=== PATIENT | male | born 1985 | race Two or more races ===

== ENCOUNTER 2019-02-03 09:21 | Inpatient (IN) | payer OTHER ==
[~2019-02-03] VITALS: Ht 160 cm; Wt 65.8 kg
[2019-02-03 09:28] VITALS: BP 133/82
--- NOTE | 2019-02-03 09:30 | NUR ---
ED Nurse Note: PT ARRIVED WITH RA 68 D/T OD ON COCAINE AT 0840 TODAY. PT WAS FOUND IN HIS CAR UNRESPONSIVE BY [facility]. PT WAS GIVEN 2 MG OF NARCAN AND REGAINED CONSCIOUSNESS. IV SITE ESTABLISHED; PATENT AND INTACT. PT IS AOX4, BLOOD SPECMINE COLLECTED AND SENT TO LAB
--- NOTE | 2019-02-03 09:32 | Emergency Room Report ---
History of Present Illness General Chief Complaint: Overdose Source: Patient Present Illness HPI Patient is a 33-year-old male brought in by EMS after altered mental status. Patient was found unresponsive in his car. He states he at that he did a line of Coke. He was found unresponsive by EMS and was given Narcan. He was noted to have rapid improvement in his mental status. He vomited 1 time after Narcan. He states he has used opiates in the past and states this did not feel like heroin. Patient also takes Abilify. He states he vomited one time after medications. Allergies: Coded Allergies: No Known Allergies (Unverified , 02/03/19) Patient History Past Medical History: see triage record Reviewed Nursing Documentation: PMH: Agreed; PSxH: Agreed Nursing Documentation-PMH Past Medical History: No Stated History Review of Systems All Other Systems: negative except mentioned in HPI Physical Exam Vital Signs Date Time Temp Pulse Resp B/P (MAP) Pulse Ox O2 Delivery O2 Flow Rate FiO2 02/03/19 09:25 110 27 90 Room Air 02/03/19 09:28 133/82 02/03/19 09:28 2.0 Sp02 EP Interpretation: reviewed, normal General Appearance: normal inspection, alert, Chronically Ill Head: atraumatic ENT: normal ENT inspection, hearing grossly normal, normal voice Neck: normal inspection, full range of motion, supple, no bony tend Respiratory: normal inspection, lungs clear, normal breath sounds, no retraction, decreased breath sounds Cardiovascular #1: no edema, tachycardia Gastrointestinal: normal inspection, normal bowel sounds, non tender, soft, no guarding, no hernia Genitourinary: no CVA tenderness Musculoskeletal: normal inspection, back normal, normal range of motion Neurologic: alert, motor strength/tone normal, 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 Medical Decision Making Diagnostic Impression: Primary Impression: Drug overdose Additional Impressions: Hypoxia Hypercapnic acidosis ER Course Patient presented for altered mental status. Differential diagnosis include was not limited to opiate overdose, polysubstance abuse, myocardial infarction, pulmonary edema among others. Because of complexity of patient's case laboratory tests and imaging studies were ordered.Patient was noted to have initial altered mental status and was noted to have some improvement after medications by EMS. He was noted to subsequently become more somnolent. He was given second dose of Narcan.Patient was noted to be hypercapnic and was started on BiPAP. He was given IV Protonix due to some episode of emesis with trace amount of some blood.Chest x-ray 1 view interpreted by me showed normal cardiac size without evident infiltrate. Patient was noted to be persistently hypoventilatory and was given breathing treatment.Laboratory studies showed some hypercapnia with respiratory acidosis. Lactic acid was elevated. EKG interpreted by me showed normal sinus rhythm with a rate of [address] or T wave changes.Urine drug screen was positive for amphetamine and marijuana. Due to patient's persistent hypoxia he will be admitted to the hospital for further evaluation and treatmentPatient was discussed with Dr. Ba for Dr. Kathleen for inpatient management. Labs Test 02/03/19 09:33 02/03/19 10:40 02/03/19 12:05 White Blood Count 14.3 K/UL (4.8-10.8) Red Blood Count 5.52 M/UL (4.70-6.10) Hemoglobin 17.4 G/DL (14.2-18.0) Hematocrit 52.3 % (42.0-52.0) Mean Corpuscular Volume 95 FL (80-99) Mean Corpuscular Hemoglobin 31.6 PG (27.0-31.0) Mean Corpuscular Hemoglobin Concent 33.3 G/DL (32.0-36.0) Red Cell Distribution Width 11.1 % (11.6-14.8) Platelet Count 311 K/UL (150-450) Mean Platelet Volume 7.0 FL (6.5-10.1) Neutrophils (%) (Auto) 43.9 % (45.0-75.0) Lymphocytes (%) (Auto) 48.3 % (20.0-45.0) Monocytes (%) (Auto) 5.2 % (1.0-10.0) Eosinophils (%) (Auto) 1.1 % (0.0-3.0) Basophils (%) (Auto) 1.5 % (0.0-2.0) Urine Color Yellow Urine Appearance Clear Urine pH 6 (4.5-8.0) Urine Specific [place] 1.025 (1.005-1.035) Urine Protein 2+ (NEGATIVE) Urine Glucose (UA) Negative (NEGATIVE) Urine Ketones 1+ (NEGATIVE) Urine Blood Negative (NEGATIVE) Urine Nitrite Negative (NEGATIVE) Urine Bilirubin Negative (NEGATIVE) Urine Urobilinogen Normal MG/DL (0.0-1.0) Urine Leukocyte Esterase 1+ (NEGATIVE) Urine RBC 0-2 /HPF (0 - 0) Urine WBC 0-2 /HPF (0 - 0) Urine Squamous Epithelial Cells Occasional /LPF Urine Calcium Oxalate Crystals Few /LPF (NONE) Urine Bacteria Occasional /HPF (NONE) Urine Fine Granular Casts 0-2 /LPF (NONE) Sodium Level 145 MMOL/L (136-145) Potassium Level 3.4 MMOL/L (3.5-5.1) Chloride Level 109 MMOL/L (98-107) Carbon Dioxide Level 25 MMOL/L (21-32) Anion Gap 11 mmol/L (5-15) Blood Urea Nitrogen 9 mg/dL (7-18) Creatinine 1.1 MG/DL (0.55-1.30) Estimat Glomerular Filtration Rate > 60 mL/min (>60) Glucose Level 185 MG/DL (74-106) Calcium Level 8.1 MG/DL (8.5-10.1) Phosphorus Level 5.3 MG/DL (2.5-4.9) Magnesium Level 2.1 MG/DL (1.8-2.4) Total Bilirubin 0.4 MG/DL (0.2-1.0) Aspartate Amino Transf (AST/SGOT) 18 U/L (15-37) Alanine Aminotransferase (ALT/SGPT) 24 U/L (12-78) Alkaline Phosphatase 60 U/L (46-116) Total Creatine Kinase 215 U/L (26-308) Creatine Kinase MB 1.9 NG/ML (0.0-3.6) Creatine Kinase MB Relative Index 0.8 Troponin I 0.000 ng/mL (0.000-0.056) Pro-B-Type Natriuretic Peptide 45 pg/mL (0-125) Total Protein 7.3 G/DL (6.4-8.2) Albumin 3.8 G/DL (3.4-5.0) Globulin 3.5 g/dL Albumin/Globulin Ratio 1.1 (1.0-2.7) Lipase 253 U/L (73-393) Salicylates Level 7.0 ug/mL (2.8-20) Urine Opiates Screen Negative (NEGATIVE) Acetaminophen Level < 2 MCG/ML (10-30) Urine Barbiturates Screen Negative (NEGATIVE) Phencyclidine (PCP) Screen Negative (NEGATIVE) Urine Amphetamines Screen Positive (NEGATIVE) Urine Benzodiazepines Screen Negative (NEGATIVE) Urine Cocaine Screen Negative (NEGATIVE) Urine Marijuana (THC) Screen Positive (NEGATIVE) Serum Alcohol < 3 mg/dL Lactic Acid Level 2.20 mmol/L (0.66-2.22) Arterial Blood pH 7.195 (7.350-7.450) Arterial Blood Partial Pressure CO2 67.0 mmHg (35.0-45.0) Arterial Blood Partial Pressure O2 58.2 mmHg (75.0-100.0) Arterial Blood HCO3 25.3 mmol/L (22.0-26.0) Arterial Blood Oxygen Saturation 86.8 % (95-100) Arterial Blood Base Excess -4.4 (-2-2) Riaz Test Positive EKG Diagnostic Results Rate: normal - 86 Rhythm: NSR ST Segments: no acute changes Last Vital Signs Date Time Temp Pulse Resp B/P (MAP) Pulse Ox O2 Delivery O2 Flow Rate FiO2 02/03/19 09:28 110 27 Room Air 2.0 02/03/19 09:28 133/82 90 Status: unchanged Disposition: ADMITTED INPATIENT Condition: Stable Dliip Hannon MD Feb 03, 2019 09:32
--- NOTE | 2019-02-03 09:46 | NUR ---
ED Nurse Note: urine collected; specimen sent to lab
[2019-02-03] MEDS ORDERED: Naloxone 1mg/ml 2ml ONE (09:50)
[2019-02-03 09:53] LABS: BASOPHILS % (AUTO) 1.5 % (0.0-2.0); EOSINOPHILS % (AUTO) 1.1 % (0.0-3.0); HEMATOCRIT 52.3 % (42.0-52.0); HEMOGLOBIN 17.4 G/DL (14.2-18.0); LYMPHOCYTES % (AUTO) 48.3 % (20.0-45.0); MEAN CORPUSCULAR VOLUME 95 FL (80-99); MONOCYTES % (AUTO) 5.2 % (1.0-10.0); NEUTROPHILS % (AUTO) 43.9 % (45.0-75.0); PLATELET COUNT 311 K/UL (150-450); RED BLOOD COUNT 5.52 M/UL (4.70-6.10); RED CELL DISTRIBUTION WIDTH 11.1 % (11.6-14.8); WHITE BLOOD COUNT 14.3 K/UL (4.8-10.8)
[2019-02-03 09:55] LABS: APPEARANCE,URINE CLEAR; BILIRUBIN, URINE NEGATIVE (NEGATIVE); GLUCOSE, URINE (UA) NEGATIVE (NEGATIVE); KETONES,URINE 1+ (NEGATIVE); LEUKOCYTE ESTERASE ,URINE 1+ (NEGATIVE); NITRITE,URINE NEGATIVE (NEGATIVE); PH,URINE 6 (4.5-8.0); PROTEIN,URINE 2+ (NEGATIVE); UROBILINOGEN,URINE NORMAL MG/DL (0.0-1.0)
[2019-02-03] MEDS ORDERED: Naloxone 1mg/ml 2ml IVP ONE (10:00)
[2019-02-03 10:01] LABS: COLOR,URINE YELLOW
--- NOTE | 2019-02-03 10:02 | NUR ---
ED Nurse Note: Xray at bedside
[2019-02-03 10:07] LABS: ANION GAP 11 mmol/L (5-15); BLOOD UREA NITROGEN 9 mg/dL (7-18); CALCIUM 8.1 MG/DL (8.5-10.1); CARBON DIOXIDE 25 MMOL/L (21-32); CHLORIDE 109 MMOL/L (98-107); CREATININE 1.1 MG/DL (0.55-1.30); POTASSIUM 3.4 MMOL/L (3.5-5.1); SODIUM 145 MMOL/L (136-145)
--- NOTE | 2019-02-03 10:24 | NUR ---
ED Nurse Note: Informed ERMD of lactic acid results.
[2019-02-03 10:25] LABS: ALANINE AMINOTRANSFERASE 24 U/L (12-78); ALBUMIN 3.8 G/DL (3.4-5.0); ALBUMIN/GLOBULIN RATIO 1.1 (1.0-2.7); ALKALINE PHOSPHATASE 60 U/L (46-116); ASPARTATE AMINO TRANSFERASE 18 U/L (15-37); BILIRUBIN,TOTAL 0.4 MG/DL (0.2-1.0); CKMB 1.9 NG/ML (0.0-3.6); CREATINE KINASE 215 U/L (26-308); PHOSPHORUS 5.3 MG/DL (2.5-4.9)
--- NOTE | 2019-02-03 10:42 | NUR ---
ED Nurse Note: Lactic acid redrawn, sent to lab.
[2019-02-03] MEDS ORDERED: Albuterol/Ipratropium 3ml neb HHN ONE (11:30)
[2019-02-03] MEDS ORDERED: Pantoprazole Inj IVP ONE (11:45)
[2019-02-03] MEDS ORDERED: Zosyn 3.375gm inj ONE (11:56)
[2019-02-03] MEDS ORDERED: Piperacillin/Tazobactam 3.375 GM in NS 110 ML IVPB ONE (12:00)
--- NOTE | 2019-02-03 12:08 | NUR ---
ED Nurse Note: RT at bedside. Placed pt on high flow.
--- NOTE | 2019-02-03 13:07 | NUR ---
ED Nurse Note: retrieved pt/ptt specimen and sent to lab
--- NOTE | 2019-02-03 13:42 | History and Physical ---
History of Present Illness General Date patient seen: Feb 03, 2019 Reason for Hospitalization: Overdose Present Illness HPI Patient is a 33-year-old male brought in by EMS after altered mental status. Patient was found unresponsive in his car. He stated that he was doing a line of cocaine. He was found unresponsive by EMS and was given Narcan. He was noted to have rapid improvement in his mental status. He vomited 1 time after Narcan. He stated he has used opiates in the past and stated this did not feel like heroin. Patient also takes Abilify. Information gathered via medical chart mostly. At the time of my exam patient is awake, on bipap, history is limited. ER Course Patient presented for altered mental status. Differential diagnosis include was not limited to opiate overdose, polysubstance abuse, myocardial infarction, pulmonary edema among others. Because of complexity of patient's case laboratory tests and imaging studies were ordered.Patient was noted to have initial altered mental status and was noted to have some improvement after medications by EMS. He was noted to subsequently become more somnolent. He was given second dose of Narcan.Patient was noted to be hypercapnic and was started on BiPAP. He was given IV Protonix due to some episode of emesis with trace amount of some blood.Chest x-ray 1 view interpreted by me showed normal cardiac size without evident infiltrate. Patient was noted to be persistently hypoventilatory and was given breathing treatment.Laboratory studies showed some hypercapnia with respiratory acidosis. Lactic acid was elevated. EKG interpreted by me showed normal sinus rhythm with a rate of [address] or T wave changes.Urine drug screen was positive for amphetamine and marijuana. In the ER after treatment remained hypoxic. PMH: Depression PSH: none Social: illicit drugs including, cocaine, meth, heroin. Washes dishes at a restaurant Family history: unknown Allergies: Coded Allergies: No Known Allergies (Unverified , 02/03/19) Patient History Healthcare decision maker Resuscitation status Advanced Directive on File Review of Systems ROS Narrative unable to obtain Physical Exam Physical Exam Narrative General Appearance: Alert, on bipap Head: atraumatic ENT: normal ENT inspection, hearing grossly normal, Neck: normal inspection, full range of motion, supple Respiratory: lungs clear, normal breath sounds, no respiratory distress, no retraction, no wheezing Cardiovascular: tachycardia, no m/r/g, no edema Gastrointestinal: normal inspection, normal bowel sounds, non tender, soft, no guarding, no hernia Musculoskeletal: normal inspection, normal range of motion Neurologic: alert, grossly normal Psychiatric: normal mood/affect normal Last 24 Hour Vital Signs Date Time Temp Pulse Resp B/P (MAP) Pulse Ox O2 Delivery O2 Flow Rate FiO2 02/03/19 12:55 91 14 100 Facial 100 02/03/19 11:35 85 16 Nasal Cannula 3.0 32 02/03/19 11:33 74 18 100 Nasal Cannula 4.0 32 82 16 98 02/03/19 09:28 110 27 Room Air 2.0 02/03/19 09:28 108 27 133/82 90 Room Air 02/03/19 09:25 110 27 90 Room Air Laboratory Tests Test 02/03/19 09:33 02/03/19 10:40 02/03/19 12:05 02/03/19 13:05 White Blood Count 14.3 K/UL (4.8-10.8) H Red Blood Count 5.52 M/UL (4.70-6.10) Hemoglobin 17.4 G/DL (14.2-18.0) Hematocrit 52.3 % (42.0-52.0) H Mean Corpuscular Volume 95 FL (80-99) Mean Corpuscular Hemoglobin 31.6 PG (27.0-31.0) H Mean Corpuscular Hemoglobin Concent 33.3 G/DL (32.0-36.0) Red Cell Distribution Width 11.1 % (11.6-14.8) L Platelet Count 311 K/UL (150-450) Mean Platelet Volume 7.0 FL (6.5-10.1) Neutrophils (%) (Auto) 43.9 % (45.0-75.0) L Lymphocytes (%) (Auto) 48.3 % (20.0-45.0) H Monocytes (%) (Auto) 5.2 % (1.0-10.0) Eosinophils (%) (Auto) 1.1 % (0.0-3.0) Basophils (%) (Auto) 1.5 % (0.0-2.0) Urine Color Yellow Urine Appearance Clear Urine pH 6 (4.5-8.0) Urine Specific [place] 1.025 (1.005-1.035) Urine Protein 2+ (NEGATIVE) H Urine Glucose (UA) Negative (NEGATIVE) Urine Ketones 1+ (NEGATIVE) H Urine Blood Negative (NEGATIVE) Urine Nitrite Negative (NEGATIVE) Urine Bilirubin Negative (NEGATIVE) Urine Urobilinogen Normal MG/DL (0.0-1.0) Urine Leukocyte Esterase 1+ (NEGATIVE) H Urine RBC 0-2 /HPF (0 - 0) H Urine WBC 0-2 /HPF (0 - 0) Urine Squamous Epithelial Cells Occasional /LPF Urine Calcium Oxalate Crystals Few /LPF (NONE) Urine Bacteria Occasional /HPF (NONE) Urine Fine Granular Casts 0-2 /LPF (NONE) H Sodium Level 145 MMOL/L (136-145) Potassium Level 3.4 MMOL/L (3.5-5.1) L Chloride Level 109 MMOL/L (98-107) H Carbon Dioxide Level 25 MMOL/L (21-32) Anion Gap 11 mmol/L (5-15) Blood Urea Nitrogen 9 mg/dL (7-18) Creatinine 1.1 MG/DL (0.55-1.30) Estimat Glomerular Filtration Rate > 60 mL/min (>60) Glucose Level 185 MG/DL (74-106) H Lactic Acid Level 2.20 mmol/L (0.4-2.0) H 2.20 mmol/L (0.66-2.22) Calcium Level 8.1 MG/DL (8.5-10.1) L Phosphorus Level 5.3 MG/DL (2.5-4.9) H Magnesium Level 2.1 MG/DL (1.8-2.4) Total Bilirubin 0.4 MG/DL (0.2-1.0) Aspartate Amino Transf (AST/SGOT) 18 U/L (15-37) Alanine Aminotransferase (ALT/SGPT) 24 U/L (12-78) Alkaline Phosphatase 60 U/L (46-116) Total Creatine Kinase 215 U/L (26-308) Creatine Kinase MB 1.9 NG/ML (0.0-3.6) Creatine Kinase MB Relative Index 0.8 Troponin I 0.000 ng/mL (0.000-0.056) Pro-B-Type Natriuretic Peptide 45 pg/mL (0-125) Total Protein 7.3 G/DL (6.4-8.2) Albumin 3.8 G/DL (3.4-5.0) Globulin 3.5 g/dL Albumin/Globulin Ratio 1.1 (1.0-2.7) Lipase 253 U/L (73-393) Salicylates Level 7.0 ug/mL (2.8-20) Urine Opiates Screen Negative (NEGATIVE) Acetaminophen Level < 2 MCG/ML (10-30) L Urine Barbiturates Screen Negative (NEGATIVE) Phencyclidine (PCP) Screen Negative (NEGATIVE) Urine Amphetamines Screen Positive (NEGATIVE) H Urine Benzodiazepines Screen Negative (NEGATIVE) Urine Cocaine Screen Negative (NEGATIVE) Urine Marijuana (THC) Screen Positive (NEGATIVE) H Serum Alcohol < 3 mg/dL Arterial Blood pH 7.195 (7.350-7.450) Arterial Blood Partial Pressure CO2 67.0 mmHg (35.0-45.0) *H Arterial Blood Partial Pressure O2 58.2 mmHg (75.0-100.0) L Arterial Blood HCO3 25.3 mmol/L (22.0-26.0) Arterial Blood Oxygen Saturation 86.8 % (95-100) *L Arterial Blood Base Excess -4.4 (-2-2) L Riaz Test Positive Prothrombin Time Pending Prothromb Time International Ratio Pending Activated Partial Thromboplast Time Pending Height (Feet): 5 Height (Inches): 3.00 Weight (Pounds): 150 Assessment/Plan Problem List: (1) Acute respiratory failure with hypoxia and hypercapnia ICD Codes: J96.01 - Acute respiratory failure with hypoxia; J96.02 - Acute respiratory failure with hypercapnia SNOMED: 147972155 (2) Lactic acidosis ICD Codes: E87.2 - Acidosis SNOMED: 67197722 (3) Drug overdose ICD Codes: T50.901A - Poisoning by unspecified drugs, medicaments and biological substances, accidental (unintentional), initial encounter SNOMED: 73600374 (4) Hematemesis ICD Codes: K92.0 - Hematemesis SNOMED: 2076251 Status: progressing, not improved Assessment/Plan: #Acute hypoxic hypercarbic respiratory failure #overdose, amphetamine, ?fentanyl #hypokalemia Plan: admit to step down repeat abg continue bipap replace electrolytes monitor lactic acid levels patient will be counselled on avoiding illicit substances once stable I spent 75 minutes on this patient's case, and 40 mins was dedicated to critical care Critical Care Services performed include: Telemetry Review Hemodynamic measurement interpretation Laboratory data review and interpretation Radiology image review and interpretation Interpretation of ABG's Discussion of patient's care with step down team, step down Nursing staff and/ or consulting services. Case d/w ER physician time of this note may not reflect time of encounter. Aurelio Ba M.D. Feb 03, 2019 13:42
--- NOTE | 2019-02-03 13:43 | NUR ---
ED Nurse Note: pt left money in safe. deposit witnessed by warehouse assistant and maria guadalupeurtiy. pt ticket number is #[id number]
--- NOTE | 2019-02-03 13:44 | NUR ---
ED Nurse Note: cre/vre and mrsa swabs collected and sent to lab
[2019-02-03] MEDS ORDERED: Albuterol/Ipratropium 3ml neb HHN PRN (13:45)
--- NOTE | 2019-02-03 14:19 | NUR ---
ED Nurse Note: Pt being transferred to SD. Report on pt given to ALBERTO Cash.
--- NOTE | 2019-02-03 15:15 | NUR ---
TRANSFER TO FLOOR: Patient transferred to SDU as ordered, per ERMD . Report given to ALBERTO Cash. Belongings and medications given to patient.
--- NOTE | 2019-02-03 15:28 | Diagnostic Imaging Report ---
Indication: Shortness of breath, vomiting Technique: One view of the chest Comparison: none Findings: Lungs and pleural spaces are clear. Heart size is normal. Impression: No acute process
[2019-02-03 16:00] VITALS: BP 128/76
--- NOTE | 2019-02-03 16:00 | NUR ---
NURSE NOTES: received pt from ER with dx Hypoxia, substance abuse, awake, alert, oriented, vital signs stable, no co pain, skin warm and dry to touch, ambulatory, pt on Bipap 20/5, FIO2 45%, skin warm and dry to touch, bed in low position, call light within reach.
--- NOTE | 2019-02-03 19:02 | NUR ---
HAND-OFF: Report given to GENOVEVA DOMINGUEZ, no distress, still on Bipap.
--- NOTE | 2019-02-03 19:30 | NUR ---
NURSE NOTES: Received Pt is resting on the bed and awake and alert. On BiPAP 12/5 and FiO2 45% and SaO2 100% noted. Iv site intact and no sign of infiltration. Placed fall precaution. Will continue to care plan. Left message to Dr. Drummond for verify order and awaiting call back. Addendum: 02/03/19 at 2215 by MULUGETA TOMAS RN RN Charting error. Change BiPAP setting from 01/23 to 08/07
[2019-02-03 20:00] VITALS: BP 128/67
--- NOTE | 2019-02-03 20:17 | NUR ---
RESPIRATORY NOTE: Received pt on BiPAP 20/5, back up rate 12, 45%. Pt on a Facial mask, skin intact, no redness/breakdowns noted. Foam tape applied on pt's nosebridge/cheeks to prevent mask irritations. FiO2 increased to 60% at this time as pt is desatting. Pt is alert/awake, follows commands. B/S nat. clear, nonproductive cough. BiPAP plugged into red outlet, alarms on & audible. Pt in no apparent distress at this time. Will continue plan of care.
[2019-02-03] MEDS: Heparin 5000 units/ml inj SUBQ SCH (20:45)
[2019-02-04] VITALS: BP 112/64
[2019-02-04 04:00] VITALS: BP 109/56
[2019-02-04 05:17] LABS: ANION GAP 6 mmol/L (5-15); BLOOD UREA NITROGEN 9 mg/dL (7-18); CALCIUM 8.2 MG/DL (8.5-10.1); CARBON DIOXIDE 29 MMOL/L (21-32); CHLORIDE 103 MMOL/L (98-107); CREATININE 0.9 MG/DL (0.55-1.30); SODIUM 138 MMOL/L (136-145)
[2019-02-04 05:19] LABS: HEMATOCRIT 40.8 % (42.0-52.0); HEMOGLOBIN 14.1 G/DL (14.2-18.0); MEAN CORPUSCULAR VOLUME 93 FL (80-99); PLATELET COUNT 232 K/UL (150-450); RED BLOOD COUNT 4.39 M/UL (4.70-6.10); RED CELL DISTRIBUTION WIDTH 10.9 % (11.6-14.8); WHITE BLOOD COUNT 16.7 K/UL (4.8-10.8)
--- NOTE | 2019-02-04 07:28 | NUR ---
HAND-OFF: Report given to ALBERTO Glass. is sleeping on the bed and no sign of acute distress noted. Tolerated well with O2 3L via nasal cannula and SaO2 95% noted.
--- NOTE | 2019-02-04 07:29 | NUR ---
NURSE NOTES: Received patient from ALBERTO Hernandes. Patient denies pain or distress at this time. Patient alert to name, place, purpose, and time. Patient still unable to speak to what he took that caused him to be hospitalized. He states that he thought he was taking cocaine but it did not feel like cocaine normally feels. His tox screen shows positive for amphetamine and marijuana. In addition, when asked what medication he takes daily, he stated that he takes Abilify 5mg daily PO and Trazedone 100mg QHS PO. Will notify MD. Patient reports itchiness throughout body at this time. Patient has not been given any medication that could have caused this. This may be a reaction to the medication he took prior to hospitalization. Patient given lotion. Will continue to monitor. Patient on 3L nasal cannula at this time with no sign of acute distress and 95% SpO2. Patient NPO for nausea. Will ask MD for diet order as patient denies nausea at this time. Patient has urinal at the bedside. Patient ambulates to the restroom. Patient skin intact. Patient has peripheral IV that is patent and saline locked at this time. Patient bed in low position with bed alarm on and call light in reach at this time. Will continue to monitor.
[2019-02-04 08:00] VITALS: BP 122/73
--- NOTE | 2019-02-04 08:18 | General Progress Note ---
Assessment/Plan Problem List: (1) Lactic acidosis ICD Codes: E87.2 - Acidosis SNOMED: 57202068 (2) Acute respiratory failure with hypoxia and hypercapnia ICD Codes: J96.01 - Acute respiratory failure with hypoxia; J96.02 - Acute respiratory failure with hypercapnia SNOMED: 669075305 (3) Drug overdose ICD Codes: T50.901A - Poisoning by unspecified drugs, medicaments and biological substances, accidental (unintentional), initial encounter SNOMED: 35019582 (4) Hematemesis ICD Codes: K92.0 - Hematemesis SNOMED: 0270285 (5) Leukocytosis ICD Codes: D72.829 - Elevated white blood cell count, unspecified SNOMED: 905168596, 378240328 Assessment/Plan: #Acute hypoxic hypercarbic respiratory failure #overdose, amphetamine, ?fentanyl #hypokalemia- resolved #Leukocytosis, r/o aspiration pneumonia #Hematemesis- hgb stable Plan: step down, can transfer to telemetry repeat abg after a few hours if able to transition off venturi mask bipap prn repeat CXR to rule out aspiration, aspiration pneumonitis patient counselled on avoiding illicit substances once stable I spent 40 minutes on this encounter, > 50% spent on counselling and care coordination. d/w rn time of this note may not reflect time of encounter. Subjective Date patient seen: Feb 04, 2019 ROS Limited/Unobtainable: No Constitutional: Denies: no symptoms, chills, diaphoresis, fever, malaise, weakness, other HEENT: Denies: no symptoms, eye pain, blurred vision, tearing, double vision, ear pain, ear discharge, nose pain, nose congestion, throat pain, throat swelling, mouth pain, mouth swelling, other Respiratory: Reports: shortness of breath Gastrointestinal/Abdominal: Denies: no symptoms, abdomen distended, abdominal pain, black stools, tarry stools, blood in stool, constipated, diarrhea, difficulty swallowing, nausea, poor appetite, poor fluid intake, rectal bleeding , vomiting, other Genitourinary: Denies: no symptoms, burning, discharge, frequency, flank pain, hematuria, incontinence, pain, urgency, other Neurologic/Psychiatric: Denies: no symptoms, anxiety, depressed, emotional problems, headache, numbness, paresthesia, pre-existing deficit, seizure, tingling, tremors, weakness, other Endocrine: Denies: no symptoms, excessive sweating, flushing, intolerance to cold, intolerance to heat, increased hunger, increased thirst, increased urine, unexplained weight gain, unexplained weight loss, other Hematologic/Lymphatic: Denies: no symptoms, anemia, easy bleeding, easy bruising, other Allergies: Coded Allergies: No Known Allergies (Unverified , 02/03/19) Subjective changed to venturi mask. hypercapnia improved, remains hypoxic on abg. denies pain, has itchiness all over his body. some sob. no cough or phlegm Objective Last 24 Hour Vital Signs Date Time Temp Pulse Resp B/P (MAP) Pulse Ox O2 Delivery O2 Flow Rate FiO2 02/04/19 04:00 65 02/04/19 04:00 97.7 82 16 109/56 (73) 96 02/04/19 04:00 3.0 02/04/19 04:00 Nasal Cannula 3.0 02/04/19 02:00 96 Nasal Cannula 3.0 32 02/04/19 00:00 3.0 02/04/19 00:00 60 02/04/19 00:00 97.5 97 16 112/64 (80) 92 02/04/19 00:00 Bi-pap 02/03/19 23:34 80 14 95 Facial 40 02/03/19 21:30 50 02/03/19 21:25 81 14 98 Facial 50 02/03/19 20:15 60 02/03/19 20:15 75 17 96 Facial 60 02/03/19 20:00 97.4 72 16 128/67 (87) 95 02/03/19 20:00 Bi-pap 02/03/19 20:00 45 02/03/19 20:00 80 02/03/19 17:15 84 14 96 Facial 45 02/03/19 16:10 45 02/03/19 16:05 Bi-pap 02/03/19 16:00 97.4 81 16 128/76 (93) 95 02/03/19 16:00 80 02/03/19 15:26 86 14 95 Facial 45 02/03/19 15:15 97.9 93 14 134/80 100 3.0 45 02/03/19 14:29 45 02/03/19 14:02 84 8 93 Bi-Pap 45 02/03/19 13:53 97 14 100 Facial 100 02/03/19 12:55 91 14 100 Facial 100 02/03/19 11:35 85 16 Nasal Cannula 3.0 32 02/03/19 11:33 74 18 100 Nasal Cannula 4.0 32 82 16 98 02/03/19 09:28 110 27 Room Air 2.0 02/03/19 09:28 108 27 133/82 90 Room Air 02/03/19 09:25 110 27 90 Room Air Intake and Output 02/03/19 02/04/19 19:00 07:00 Intake Total 1410 ml Output Total 300 ml Balance 1110 ml Intake Oral 300 ml IV Total 1110 ml Output Urine Total 300 ml # Voids 3 Laboratory Tests 02/03/19 09:33: White Blood Count 14.3H, Red Blood Count 5.52, Hemoglobin 17.4, Hematocrit 52.3H , Mean Corpuscular Volume 95, Mean Corpuscular Hemoglobin 31.6H, Mean Corpuscular Hemoglobin Concent 33.3, Red Cell Distribution Width 11.1L, Platelet Count 311, Mean Platelet Volume 7.0, Neutrophils (%) (Auto) 43.9L, Lymphocytes (%) (Auto) 48.3H, Monocytes (%) (Auto) 5.2, Eosinophils (%) (Auto) 1.1, Basophils (%) (Auto) 1.5, Urine Color Yellow, Urine Appearance Clear, Urine pH 6, Urine Specific [place] 1.025, Urine Protein 2+H, Urine Glucose (UA) Negative, Urine Ketones 1+H, Urine Blood Negative, Urine Nitrite Negative, Urine Bilirubin Negative, Urine Urobilinogen Normal, Urine Leukocyte Esterase 1+ H, Urine RBC 0-2H, Urine WBC 0-2, Urine Squamous Epithelial Cells Occasional, Urine Calcium Oxalate Crystals Few, Urine Bacteria Occasional, Urine Fine Granular Casts 0-2H, Sodium Level 145, Potassium Level 3.4L, Chloride Level 109H , Carbon Dioxide Level 25, Anion Gap 11, Blood Urea Nitrogen 9, Creatinine 1.1, Estimat Glomerular Filtration Rate > 60, Glucose Level 185H, Lactic Acid Level 2.20H, Calcium Level 8.1L, Phosphorus Level 5.3H, Magnesium Level 2.1, Total Bilirubin 0.4, Aspartate Amino Transf (AST/SGOT) 18, Alanine Aminotransferase ( ALT/SGPT) 24, Alkaline Phosphatase 60, Total Creatine Kinase 215, Creatine Kinase MB 1.9, Creatine Kinase MB Relative Index 0.8, Troponin I 0.000, Pro-B- Type Natriuretic Peptide 45, Total Protein 7.3, Albumin 3.8, Globulin 3.5, Albumin/Globulin Ratio 1.1, Lipase 253, Salicylates Level 7.0, Urine Opiates Screen Negative, Acetaminophen Level < 2L, Urine Barbiturates Screen Negative, Phencyclidine (PCP) Screen Negative, Urine Amphetamines Screen PositiveH, Urine Benzodiazepines Screen Negative, Urine Cocaine Screen Negative, Urine Marijuana (THC) Screen PositiveH, Serum Alcohol < 3 02/03/19 10:40: Lactic Acid Level 2.20 02/03/19 12:05: Arterial Blood pH 7.195*L, Arterial Blood Partial Pressure CO2 67.0*H, Arterial Blood Partial Pressure O2 58.2L, Arterial Blood HCO3 25.3, Arterial Blood Oxygen Saturation 86.8*L, Arterial Blood Base Excess -4.4L, Riaz Test Positive 02/03/19 13:05: Prothrombin Time 10.7, Prothromb Time International Ratio 1.0, Activated Partial Thromboplast Time 24 02/03/19 17:45: Arterial Blood pH 7.289L, Arterial Blood Partial Pressure CO2 57.4*H, Arterial Blood Partial Pressure O2 82.1, Arterial Blood HCO3 26.9H, Arterial Blood Oxygen Saturation 95.6, Arterial Blood Base Excess -0.9, Riaz Test Positive 02/04/19 03:10: White Blood Count 16.7H, Red Blood Count 4.39L, Hemoglobin 14.1L, Hematocrit 40.8L, Mean Corpuscular Volume 93, Mean Corpuscular Hemoglobin 32.2H, Mean Corpuscular Hemoglobin Concent 34.6, Red Cell Distribution Width 10.9L, Platelet Count 232, Mean Platelet Volume 6.4L, Neutrophils (%) (Auto) , Lymphocytes (%) (Auto) , Monocytes (%) (Auto) , Eosinophils (%) (Auto) , Basophils (%) (Auto) , Neutrophils % (Manual) [Pending], Lymphocytes % (Manual) [Pending], Platelet Estimate [Pending], Platelet Morphology [Pending], Sodium Level 138, Potassium Level 4.0, Chloride Level 103, Carbon Dioxide Level 29, Anion Gap 6, Blood Urea Nitrogen 9, Creatinine 0.9, Estimat Glomerular Filtration Rate > 60, Glucose Level 111H, Calcium Level 8.2L 02/04/19 07:28: Arterial Blood pH 7.342L, Arterial Blood Partial Pressure CO2 53.6H, Arterial Blood Partial Pressure O2 61.2L, Arterial Blood HCO3 28.4H, Arterial Blood Oxygen Saturation 91.9L, Arterial Blood Base Excess 1.6, Riaz Test Positive Laboratory Tests Test 02/03/19 09:33 02/03/19 10:40 02/03/19 12:05 02/03/19 13:05 White Blood Count 14.3 K/UL (4.8-10.8) H Red Blood Count 5.52 M/UL (4.70-6.10) Hemoglobin 17.4 G/DL (14.2-18.0) Hematocrit 52.3 % (42.0-52.0) H Mean Corpuscular Volume 95 FL (80-99) Mean Corpuscular Hemoglobin 31.6 PG (27.0-31.0) H Mean Corpuscular Hemoglobin Concent 33.3 G/DL (32.0-36.0) Red Cell Distribution Width 11.1 % (11.6-14.8) L Platelet Count 311 K/UL (150-450) Mean Platelet Volume 7.0 FL (6.5-10.1) Neutrophils (%) (Auto) 43.9 % (45.0-75.0) L Lymphocytes (%) (Auto) 48.3 % (20.0-45.0) H Monocytes (%) (Auto) 5.2 % (1.0-10.0) Eosinophils (%) (Auto) 1.1 % (0.0-3.0) Basophils (%) (Auto) 1.5 % (0.0-2.0) Urine Color Yellow Urine Appearance Clear Urine pH 6 (4.5-8.0) Urine Specific [place] 1.025 (1.005-1.035) Urine Protein 2+ (NEGATIVE) H Urine Glucose (UA) Negative (NEGATIVE) Urine Ketones 1+ (NEGATIVE) H Urine Blood Negative (NEGATIVE) Urine Nitrite Negative (NEGATIVE) Urine Bilirubin Negative (NEGATIVE) Urine Urobilinogen Normal MG/DL (0.0-1.0) Urine Leukocyte Esterase 1+ (NEGATIVE) H Urine RBC 0-2 /HPF (0 - 0) H Urine WBC 0-2 /HPF (0 - 0) Urine Squamous Epithelial Cells Occasional /LPF Urine Calcium Oxalate Crystals Few /LPF (NONE) Urine Bacteria Occasional /HPF (NONE) Urine Fine Granular Casts 0-2 /LPF (NONE) H Sodium Level 145 MMOL/L (136-145) Potassium Level 3.4 MMOL/L (3.5-5.1) L Chloride Level 109 MMOL/L (98-107) H Carbon Dioxide Level 25 MMOL/L (21-32) Anion Gap 11 mmol/L (5-15) Blood Urea Nitrogen 9 mg/dL (7-18) Creatinine 1.1 MG/DL (0.55-1.30) Estimate Glomerular Filtration Rate > 60 mL/min (>60) Glucose Level 185 MG/DL (74-106) H Lactic Acid Level 2.20 mmol/L (0.4-2.0) H 2.20 mmol/L (0.66-2.22) Calcium Level 8.1 MG/DL (8.5-10.1) L Phosphorus Level 5.3 MG/DL (2.5-4.9) H Magnesium Level 2.1 MG/DL (1.8-2.4) Total Bilirubin 0.4 MG/DL (0.2-1.0) Aspartate Amino Transferase (AST) 18 U/L (15-37) Alanine Aminotransferase (ALT) 24 U/L (12-78) Alkaline Phosphatase 60 U/L (46-116) Total Creatine Kinase 215 U/L (26-308) Creatine Kinase MB 1.9 NG/ML (0.0-3.6) Creatine Kinase MB Relative Index 0.8 Troponin I 0.000 ng/mL (0.000-0.056) Pro-B-Type Natriuretic Peptide 45 pg/mL (0-125) Total Protein 7.3 G/DL (6.4-8.2) Albumin 3.8 G/DL (3.4-5.0) Globulin 3.5 g/dL Albumin/Globulin Ratio 1.1 (1.0-2.7) Lipase 253 U/L (73-393) Salicylates Level 7.0 ug/mL (2.8-20) Urine Opiates Screen Negative (NEGATIVE) Acetaminophen Level < 2 MCG/ML (10-30) L Urine Barbiturates Screen Negative (NEGATIVE) Phencyclidine (PCP) Screen Negative (NEGATIVE) Urine Amphetamines Screen Positive (NEGATIVE) H Urine Benzodiazepines Screen Negative (NEGATIVE) Urine Cocaine Screen Negative (NEGATIVE) Urine Marijuana (THC) Screen Positive (NEGATIVE) H Serum Alcohol < 3 mg/dL Arterial Blood pH 7.195 (7.350-7.450) Arterial Blood Partial Pressure CO2 67.0 mmHg (35.0-45.0) *H Arterial Blood Partial Pressure O2 58.2 mmHg (75.0-100.0) L Arterial Blood HCO3 25.3 mmol/L (22.0-26.0) Arterial Blood Oxygen Saturation 86.8 % (95-100) *L Arterial Blood Base Excess -4.4 (-2-2) L Riaz Test Positive Prothrombin Time 10.7 SEC (9.30-11.50) Prothrombin Time INR 1.0 (0.9-1.1) PTT 24 SEC (23-33) Test 02/03/19 17:45 02/04/19 03:10 02/04/19 07:28 Arterial Blood pH 7.289 (7.350-7.450) 7.342 (7.350-7.450) Arterial Blood Partial Pressure CO2 57.4 mmHg (35.0-45.0) *H 53.6 mmHg (35.0-45.0) H Arterial Blood Partial Pressure O2 82.1 mmHg (75.0-100.0) 61.2 mmHg (75.0-100.0) L Arterial Blood HCO3 26.9 mmol/L (22.0-26.0) H 28.4 mmol/L (22.0-26.0) H Arterial Blood Oxygen Saturation 95.6 % (95-100) 91.9 % (95-100) L Arterial Blood Base Excess -0.9 (-2-2) 1.6 (-2-2) Riaz Test Positive Positive White Blood Count 16.7 K/UL (4.8-10.8) H Red Blood Count 4.39 M/UL (4.70-6.10) L Hemoglobin 14.1 G/DL (14.2-18.0) L Hematocrit 40.8 % (42.0-52.0) L Mean Corpuscular Volume 93 FL (80-99) Mean Corpuscular Hemoglobin 32.2 PG (27.0-31.0) H Mean Corpuscular Hemoglobin Concent 34.6 G/DL (32.0-36.0) Red Cell Distribution Width 10.9 % (11.6-14.8) L Platelet Count 232 K/UL (150-450) Mean Platelet Volume 6.4 FL (6.5-10.1) L Neutrophils (%) (Auto) % (45.0-75.0) Lymphocytes (%) (Auto) % (20.0-45.0) Monocytes (%) (Auto) % (1.0-10.0) Eosinophils (%) (Auto) % (0.0-3.0) Basophils (%) (Auto) % (0.0-2.0) Differential Total Cells Counted 100 Neutrophils % (Manual) 85 % (45-75) H Lymphocytes % (Manual) 12 % (20-45) L Monocytes % (Manual) 3 % (1-10) Eosinophils % (Manual) 0 % (0-3) Basophils % (Manual) 0 % (0-2) Band Neutrophils 0 % (0-8) Platelet Estimate Adequate Platelet Morphology Normal Red Blood Cell Morphology Normal Sodium Level 138 MMOL/L (136-145) Potassium Level 4.0 MMOL/L (3.5-5.1) Chloride Level 103 MMOL/L (98-107) Carbon Dioxide Level 29 MMOL/L (21-32) Anion Gap 6 mmol/L (5-15) Blood Urea Nitrogen 9 mg/dL (7-18) Creatinine 0.9 MG/DL (0.55-1.30) Estimate Glomerular Filtration Rate > 60 mL/min (>60) Glucose Level 111 MG/DL (74-106) H Calcium Level 8.2 MG/DL (8.5-10.1) L Height (Feet): 5 Height (Inches): 3.00 Weight (Pounds): 150 Objective General Appearance: Alert, on venti mask Head: atraumatic ENT: normal ENT inspection, hearing grossly normal, Neck: normal inspection, full range of motion, supple Respiratory: lungs clear, normal breath sounds, no respiratory distress, no retraction, no wheezing Cardiovascular: tachycardia, no m/r/g, no edema Gastrointestinal: normal inspection, normal bowel sounds, non tender, soft, no guarding, no hernia Musculoskeletal: normal inspection, normal range of motion Neurologic: alert, grossly normal Psychiatric: normal mood/affect normal Aurelio aB M.D. Feb 04, 2019 08:18
--- NOTE | 2019-02-04 08:20 | NUR ---
NURSE NOTES: Received verbal order from Dr Ba for regular diet, advance as tolerated, chest x-ray, and transfer to telemetry. All orders read back, verified, and placed at this time. Notified dietary regarding new diet order and asked if patient can get breakfast tray. Addendum: 02/04/19 at 0956 by Maria Luisa Hoskins RN Also received order to obtain ABG if patient able to tolerate being on room air later today. Order read back, verified, and placed as other nursing order.
[2019-02-04] MEDS: Heparin 5000 units/ml inj SUBQ SCH ×2 (09:17→21:45)
--- NOTE | 2019-02-04 10:49 | NUR ---
RADIOLOGY DEPT., CHEST X-RAY DONE.-P.DYE
[2019-02-04] MEDS ORDERED: ABILIFY10 MG ORAL (11:13)
[2019-02-04] MEDS ORDERED: TRAZODONE HCL100 MG ORAL (11:13)
[2019-02-04 12:00] VITALS: BP 99/33
--- NOTE | 2019-02-04 12:30 | NUR ---
NURSE NOTES: Patient on room air and eating at this time with oxygen saturation of 95%. Will obtain ABG after an hour. RT aware. Patient denies pain or acute distress at this time. Will continue to monitor. Bed in low position with bed alarm on and call light in reach.
--- NOTE | 2019-02-04 13:45 | Diagnostic Imaging Report ---
Indication: Shortness of breath Technique: One view of the chest Comparison: 02/03/2019 Findings: Less optimal inspiration currently. Interim development of bilateral perihilar fluffy infiltrates. The heart is normal in size. Impression: Bilateral perihilar infiltrates, developing since previous day's exam. This is suspicious for pneumonia. Pulmonary edema also a possibility
--- NOTE | 2019-02-04 14:00 | NUR ---
NURSE NOTES: Patient reported that he vomited when he went to the restroom. Patient reported that he did not eat very much from the tray and then had to vomit. Will continue to monitor and downgrade diet if needed.
[2019-02-04 16:00] VITALS: BP 111/66
--- NOTE | 2019-02-04 16:00 | NUR ---
NURSE NOTES: Patient denies nausea at this time. Patient reported that he vomited once after lunch. Will continue to monitor and reassess patient when eating dinner. Patient resting in bed. Vital signs stable. Patient remains on Venturi mask 40% FiO2. Will continue to monitor. Bed in low position with bed alarm on and call light in reach at this time.
--- NOTE | 2019-02-04 19:19 | NUR ---
HAND-OFF: Report given to ALBERTO Garrison. Patient denies pain or distress. Endorsed to follow up.
--- NOTE | 2019-02-04 19:25 | NUR ---
NURSE NOTES: Report received from ALBERTO Glass. Observed pt lying in the bed. A/O x4. SR on income tax expert. On Venturi 40%, no signs of SOB. IV on R W 22G, asymptomatic. Pt stable condition. No acute distress noted at this time. Will continue to monitor.
[2019-02-04 20:00] VITALS: BP 113/71
[2019-02-05] VITALS (7 sets, daily range): BP systolic 100–135; BP diastolic 60–74
--- NOTE | 2019-02-05 | NUR ---
NURSE NOTES: Noted pt sleeping in the bed, no acute distress noted at this time. SB with HR of 58 noted. Will continue to monitor.
[2019-02-05 05:03] LABS: BASOPHILS % (AUTO) 0.8 % (0.0-2.0); EOSINOPHILS % (AUTO) 1.5 % (0.0-3.0); HEMATOCRIT 41.9 % (42.0-52.0); HEMOGLOBIN 14.5 G/DL (14.2-18.0); LYMPHOCYTES % (AUTO) 38.3 % (20.0-45.0); MEAN CORPUSCULAR VOLUME 92 FL (80-99); NEUTROPHILS % (AUTO) 54.4 % (45.0-75.0); PLATELET COUNT 209 K/UL (150-450); RED BLOOD COUNT 4.57 M/UL (4.70-6.10); RED CELL DISTRIBUTION WIDTH 10.4 % (11.6-14.8)
--- NOTE | 2019-02-05 07:41 | NUR ---
HAND-OFF: Report given to ALBERTO Thomas.
--- NOTE | 2019-02-05 07:42 | NUR ---
NURSE NOTES: Received patient in bed. Awake, verbal, able to make needs known. Call light within reach. On room air, no respiratory distress at this time. Patient tolerating breakfast meal.
[2019-02-05] MEDS: Heparin 5000 units/ml inj SUBQ SCH ×2 (09:00→20:10)
--- NOTE | 2019-02-05 09:44 | NUR ---
CASE MANAGEMENT: REVIEW 33 YR OLD MALE BIBA FROM HOME CC; OVERDOSE SI; DRUG OVERDOSE, HYPERCAPNIC ACIDOSIS, HYPOXIA 97.9 110 27 133/82 90% ON RA PH 7.195 PC02 67.0 P02 58.2 02 SAT 86.8 BE -4.4 WBC 14.3 LA 2.20 CA 8.1 URINE (+) AMPHETAMINE AND THC IS;PLACED ON BIPAP 1L NS IV NALOXONE 2 MG IVP DUONEB HHN IV PROTONIX IV ZOSYN IV ZOFRAN BLOOD CULTURE CXR ; STEP DOWN UNIT
[2019-02-05] MEDS ORDERED: Ampicillin/Sulbactam Sod 3 GM in NS 110 ML IVPB SCH (10:00)
--- NOTE | 2019-02-05 10:30 | NUR ---
HAND-OFF: Report given to Shreya Wellington RN.
--- NOTE | 2019-02-05 10:35 | NUR ---
NURSE NOTES: Assumed pt care,report received from Martha Benítez.Pt awake,alert oriented,ambulatory,noted no resp distress,denies any c/o pain or vomiting ,no hematemesis noted,skin warm and dry IV heplock to RFA intact,call melchor within reach at bedside,bed lock in lowest position will continue with plans of care.
--- NOTE | 2019-02-05 12:00 | NUR ---
NURSE NOTES: Pt stable no distress presented,Dr Ba at bedside,transfer orders to [place] given.
--- NOTE | 2019-02-05 14:42 | General Progress Note ---
Assessment/Plan Problem List: (1) Lactic acidosis ICD Codes: E87.2 - Acidosis SNOMED: 32495938 (2) Acute respiratory failure with hypoxia and hypercapnia ICD Codes: J96.01 - Acute respiratory failure with hypoxia; J96.02 - Acute respiratory failure with hypercapnia SNOMED: 762212598 (3) Drug overdose ICD Codes: T50.901A - Poisoning by unspecified drugs, medicaments and biological substances, accidental (unintentional), initial encounter SNOMED: 53193344 (4) Hematemesis ICD Codes: K92.0 - Hematemesis SNOMED: 6675964 (5) Leukocytosis ICD Codes: D72.829 - Elevated white blood cell count, unspecified SNOMED: 179412783, 100911414 Status: progressing, not improved Assessment/Plan: #Acute hypoxic hypercarbic respiratory failure #overdose, amphetamine, ?fentanyl #hypokalemia- resolved #Leukocytosis, resolved #aspiration pneumonia #Hematemesis- hgb stable Plan: step down, can transfer to telemetry repeat abg after a few hours if able to transition off venturi mask, persistent hypoxemia Start Unasyn for aspiration pneumonia bipap prn patient counselled on avoiding illicit substances Resume home Abilify and Trazodone I spent 40 minutes on this encounter, > 50% spent on counselling and care coordination. d/w rn time of this note may not reflect time of encounter. Subjective Date patient seen: Feb 05, 2019 ROS Limited/Unobtainable: No Constitutional: Reports: other - dizzy HEENT: Denies: no symptoms, eye pain, blurred vision, tearing, double vision, ear pain, ear discharge, nose pain, nose congestion, throat pain, throat swelling, mouth pain, mouth swelling, other Cardiovascular: Reports: lightheadedness Respiratory: Denies: no symptoms, cough, orthopnea, shortness of breath, SOB with excertion, SOB at rest, sputum, stridor, wheezing, other Gastrointestinal/Abdominal: Denies: no symptoms, abdomen distended, abdominal pain, black stools, tarry stools, blood in stool, constipated, diarrhea, difficulty swallowing, nausea, poor appetite, poor fluid intake, rectal bleeding , vomiting, other Genitourinary: Denies: no symptoms, burning, discharge, frequency, flank pain, hematuria, incontinence, pain, urgency, other Neurologic/Psychiatric: Denies: no symptoms, anxiety, depressed, emotional problems, headache, numbness, paresthesia, pre-existing deficit, seizure, tingling, tremors, weakness, other Endocrine: Denies: no symptoms, excessive sweating, flushing, intolerance to cold, intolerance to heat, increased hunger, increased thirst, increased urine, unexplained weight gain, unexplained weight loss, other Hematologic/Lymphatic: Denies: no symptoms, anemia, easy bleeding, easy bruising, other Allergies: Coded Allergies: No Known Allergies (Unverified , 02/03/19) Subjective seen and examined. He is in no acute distress. He is saturating okay at rest. However upon 1-2 minutes of ambulation, his O2 saturation drops to 87%, he gets very sob and also lightheaded. He remains afebrile and wbc trending down. CXR with possible perihilar infiltrates Objective Last 24 Hour Vital Signs Date Time Temp Pulse Resp B/P (MAP) Pulse Ox O2 Delivery O2 Flow Rate FiO2 02/05/19 12:00 76 02/05/19 08:00 97.7 76 20 123/74 (90) 100 02/05/19 08:00 Room Air 02/05/19 07:42 69 02/05/19 04:00 8.0 40 02/05/19 04:00 62 02/05/19 04:00 97.8 70 16 112/60 (77) 100 02/05/19 04:00 Nasal Cannula 3.0 02/05/19 00:00 Nasal Cannula 3.0 02/05/19 00:00 97.6 63 16 113/73 (86) 100 02/05/19 00:00 61 02/05/19 00:00 8.0 40 02/04/19 20:00 8.0 40 02/04/19 20:00 Nasal Cannula 3.0 02/04/19 20:00 68 02/04/19 20:00 97.6 66 20 113/71 (85) 99 02/04/19 19:00 95 Venturi Mask 8.0 40 02/04/19 16:00 70 02/04/19 16:00 8.0 40 02/04/19 16:00 98.1 79 20 111/66 (81) 99 02/04/19 16:00 Nasal Cannula 3.0 Intake and Output 02/04/19 02/05/19 19:00 07:00 Intake Total 480 ml 200 ml Output Total 250 ml Balance 230 ml 200 ml Intake Oral 480 ml 200 ml Output Urine Total 200 ml Emesis 50 ml # Voids 1 Laboratory Tests 02/05/19 03:35: White Blood Count 9.0, Red Blood Count 4.57L, Hemoglobin 14.5, Hematocrit 41.9L , Mean Corpuscular Volume 92, Mean Corpuscular Hemoglobin 31.7H, Mean Corpuscular Hemoglobin Concent 34.6, Red Cell Distribution Width 10.4L, Platelet Count 209, Mean Platelet Volume 6.6, Neutrophils (%) (Auto) 54.4, Lymphocytes (%) (Auto) 38.3, Monocytes (%) (Auto) 5.0, Eosinophils (%) (Auto) 1.5, Basophils (%) (Auto) 0.8 Height (Feet): 5 Height (Inches): 3.00 Weight (Pounds): 145 Objective General Appearance: Alert and oriented Head: atraumatic ENT: normal ENT inspection, hearing grossly normal, Neck: normal inspection, full range of motion, supple Respiratory: lungs clear, normal breath sounds, no respiratory distress, no retraction, no wheezing Cardiovascular: RRR, no m/r/g, no edema Gastrointestinal: normal inspection, normal bowel sounds, non tender, soft, no guarding, no hernia Musculoskeletal: normal inspection, normal range of motion Neurologic: alert, grossly normal Psychiatric: normal mood/affect normal, depressed this morning Aurelio Ba M.D. Feb 05, 2019 14:42
--- NOTE | 2019-02-05 16:45 | NUR ---
TRANSFER TO FLOOR: Patient transferred to 4 E r00m 405-1, per bed awake alert oriented in no distress.. Report given to Julia MCDONALD. Belongings given to receiving nurse.
--- NOTE | 2019-02-05 17:00 | NUR ---
NURSE NOTES: received patient A/A/Ox4, able to make things known. ambulate with steady gait. personal belongings noted. money in the safe prior transferring on , receipt in the chart. skin is intact. advance his diet per MD order. medicated with tylenol for a headache. no acute distress noted. keep bed in the lowest position. siderails are up x2. call light within reach. will cont to monitor.
[2019-02-05] MEDS ORDERED: Albuterol/Ipratropium 3ml neb HHN PRN (17:45)
--- NOTE | 2019-02-05 19:00 | NUR ---
NURSE NOTES: Received pt from TAMARA Dumont. Pt AAO x 4, on room air. No c/o pain/resp. distress noted at this time. IV intact. Pt is ambulatory. Bed locked, lowest position, alarm on, side rails up, call light within reach. Will continue to monitor.
--- NOTE | 2019-02-05 19:16 | NUR ---
HAND-OFF: Report given to May.
[2019-02-05] MEDS: Ampicillin/Sulbactam Sod 3 GM in NS 110 ML IVPB SCH (20:09)
[2019-02-05] MEDS ORDERED: TraZODone 100mg tab ORAL SCH ×2 (21:00)
[2019-02-06] VITALS: BP 108/64
[2019-02-06] MEDS: Ampicillin/Sulbactam Sod 3 GM in NS 110 ML IVPB SCH ×2 (01:26→10:10)
[2019-02-06 04:00] VITALS: BP 115/62
--- NOTE | 2019-02-06 07:29 | NUR ---
HAND-OFF: Report given to Venessa aviles RN.
--- NOTE | 2019-02-06 07:30 | NUR ---
NURSE NOTES: Received report from ALBERTO Olvera. Pt is A/Ox4, on RA, no complaints of pain or apparent distress noted. IV site intact. Bed locked in lowest position, side rails up, call light within reach. Will continue to monitor.
[2019-02-06 08:00] VITALS: BP 128/59
[2019-02-06] MEDS: Heparin 5000 units/ml inj SUBQ SCH (08:52)
[2019-02-06] MEDS ORDERED: AUGMENTIN 500-1 EACH ORAL (11:04)
--- NOTE | 2019-02-06 11:07 | NUR ---
CASE MANAGEMENT:REVIEW 02/06/19 SI; DRUG OVERDOSE, HYPERCAPNIC ACIDOSIS, HYPOXIA 97.6 82 16 128/59 95% RA IS;CXR HEPARIN Q12H BIPAP MED SURG STATUS DCP;TO HOME PLAN;DISCHARGE TODAY
--- NOTE | 2019-02-06 11:09 | Discharge Summary ---
Discharge Summary Hospital Course Date of Admission Feb 03, 2019 at 14:13 Date of Discharge 02/06/2019 Admitting Diagnosis hematemesis, substance abuse, hypoxia HPI Dustin Maher is a 33 year old male who was admitted on Feb 03, 2019 at 14: 13 for Hematemesis, Substance Abuse, Hypoxia Hospital Course #Acute hypoxic hypercarbic respiratory failure #overdose, amphetamine, ?fentanyl #hypokalemia- resolved #Leukocytosis, resolved #aspiration pneumonia #Hematemesis- hgb stable Plan: step down, can transfer to telemetry repeat abg after a few hours if able to transition off venturi mask, persistent hypoxemia Started Unasyn for aspiration pneumonia bipap prn patient counselled on avoiding illicit substances Resume home Abilify and Trazodone today 02/06, patient is no longer hypoxic, he ambulated for 6 minutes and o2 sat remained >96%. On exam his lung clear bilaterally. He will be discharged on 5 days of Augmentin for aspiration pneumonia. I spent 35 minute son this encounter. >50% spent on counselling and care coordination. I spent 40 minutes on this encounter, > 50% spent on counselling and care coordination. d/w rn time of this note may not reflect time of encounter. Discharge Medications New Medications: Amoxicillin/Potassium Clav 500-125 Tablet* (Augmentin 500-125 Tablet*) 1 Each Tablet 1 TAB ORAL THREE TIMES A DAY for 5 Days, #15 TAB Continued Medications: Aripiprazole* (Abilify*) 10 Mg Tablet 5 MG ORAL DAILY, TAB Trazodone Hcl* (Desyrel*) 100 Mg Tablet 100 MG ORAL BEDTIME, TAB Discharge Condition Upon Discharge: stable Discharge Disposition Patient was discharged to home Discharge Diagnoses: (1) Acute respiratory failure with hypoxia and hypercapnia (2) Drug overdose (3) Aspiration pneumonia (4) Lactic acidosis Aurelio Ba M.D. Feb 06, 2019 11:09
--- NOTE | 2019-02-06 11:35 | NUR ---
CASE MANAGEMENT:CALL TO [facility] MADE TO , SPOKE WITH TEJAS LEBLANC FOR PATIENT TO RETURN TO [facility]
[2019-02-06 12:00] VITALS: BP 110/53
--- NOTE | 2019-02-06 12:15 | NUR ---
NURSE NOTES: Called Joaquin Solano (pt's friend; next of kin( notifying of pt's DC.
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
--- NOTE | 2019-02-09 11:32 | NUR ---
CASE MANAGEMENT: CM review and clinical information (face sheet/ H&P/ER MD notes/DC summary) faxed to [facility] @ [phone]. 2018 [phone]
--- NOTE | 2019-02-13 13:56 | Cardiology Report ---
APPROVED REPORT EKG Measurement Heart [id number] <Conclusion> Normal sinus rhythm Normal ECG
== END 2019-02-06 15:23 | disposition home or self-care (01) | DRG 812 ==
LOC: EDBD 09:21 → EMR 09:43 → EDBEDREQ 14:07 → 2W 14:13 → 4E 02-05 16:49
PROC: 5A09357 Assistance with Respiratory Ventilation, Less than 24 Consecutive Hours, Continuous Positive Airway Pressure (ICD-10-PCS; principal; 2019-02-03)
DX: T43.621A Poisoning by amphetamines, accidental (unintentional), initial encounter (principal); R41.82 Altered mental status, unspecified; E87.2 Acidosis; J96.02 Acute respiratory failure with hypercapnia; J96.01 Acute respiratory failure with hypoxia; K92.0 Hematemesis; J69.0 Pneumonitis due to inhalation of food and vomit; E87.6 Hypokalemia; F32.9 Major depressive disorder, single episode, unspecified; F15.10 Other stimulant abuse, uncomplicated; F14.10 Cocaine abuse, uncomplicated; F11.10 Opioid abuse, uncomplicated
CPT/HCPCS: 36415; 36600; 71045; 80048; 80053; 80307; 81003; 82550; 82553; 82803; 83605; 83690; 83735; 83880; 84100; 84484; 85007; 85025; 85610; 85730; 86850; 86900; 86901; 87040; 87081; 93005; 94660; 94664; 96361; 96365; 96375; 99285; G0480; J2310; J2405; J7030; J7620